=== PATIENT | male | born 1975 | race African-American/Black ===

== ENCOUNTER 2019-01-10 20:22 | Emergency (ER) | payer OTHER ==
[~2019-01-10] VITALS: Ht 177.8 cm; Wt 72.6 kg
[2019-01-10 20:28] VITALS: BP 142/104
--- NOTE | 2019-01-10 20:29 | NUR ---
ED Nurse Note: patient presents with history of seizure, witnessed seizure today by family member, estimated duration over a minute. Patient was seen having rotating hand movements and unresponsive until post ictal.
--- NOTE | 2019-01-10 20:43 | Emergency Room Report ---
History of Present Illness General Chief Complaint: Seizure Source: Patient, Significant Other, EMS Present Illness HPI EMS was summoned for seizure. Patient was postictal and unable to give history to them. When I speak with him he says that he has had seizures in the past but is not taking medication at this time. He does drink alcohol frequently. He claims to have had a work-up done in the past with a CT that he says was negative. He cannot tell me when his last seizure was. He denies biting his tongue or any pain in his body at this time. According to the patient's significant other he is been drinking daily since he was a teenager. He was admitted to [facility] 2 years ago but refused to follow-up in rehab. He did not drink for the last 24 hours. He has an ulcer on his left second toe that is been there for quite a while. His is not sure when his last tetanus shot was. Although history is limited and there is been no fever, head injury, vomiting or diarrhea or melena. Allergies: Coded Allergies: No Known Allergies (Unverified , 01/10/19) Patient History Limited by: medical condition Past Medical History: see triage record Social History: Reports: alcohol use; Denies: smoking Social History Narrative Living on the streets Reviewed Nursing Documentation: PMH: Agreed; PSxH: Agreed Nursing Documentation-PMH Past Medical History: No History, Except For History Of Psychiatric Problem: Yes - anxiety Review of Systems All Other Systems: limited Physical Exam Vital Signs Date Time Temp Pulse Resp B/P (MAP) Pulse Ox O2 Delivery O2 Flow Rate FiO2 01/10/19 20:21 99.0 109 18 142/104 (117) 98 Room Air Sp02 EP Interpretation: reviewed, normal General Appearance: no apparent distress, alert, Postictal Head: normocephalic, atraumatic Eyes: bilateral eye PERRL, bilateral eye EOMI, bilateral eye Scleral Injection ENT: moist mucus membranes - no lingual trauma Neck: full range of motion, supple, no bony tend Respiratory: chest non-tender, lungs clear, normal breath sounds Cardiovascular #1: regular rate, rhythm, no edema Cardiovascular #2: 2+ radial (R) Gastrointestinal: non tender, soft, non-distended, decreased bowel sounds Genitourinary: no CVA tenderness Musculoskeletal: back normal, normal range of motion, non-tender, no calf tenderness Neurologic: alert, beater engineer helper III-XII nml as tested, motor strength/tone normal, DTRs symmetric, sensory intact, speech normal, other - tremulous, oriented - X1 Psychiatric: depressed affect Skin: warm/dry, other - ulcer L 2nd toe Medical Decision Making Diagnostic Impression: Primary Impression: Seizure Additional Impressions: Alcohol withdrawal Qualified Codes: F10.239 - Alcohol dependence with withdrawal, unspecified Toe ulcer Qualified Codes: L97.511 - Non-pressure chronic ulcer of other part of right foot limited to breakdown of skin Elevated CPK ER Course The patient presents post seizure with a history of seizures. Differential includes withdrawal seizure, epilepsy, brain bleed, electrolyte abnormality amongst others. The patient will be evaluated with EKG, chest x-rays, CT of the head and labs. The patient is placed on a school lunch monitor. IV hydration will be performed as well as he will be given a dose of Ativan and Keppra IV. Tetanus is given as well as bacitracin applied to the ulcer on the second toe. EKG without injury. Chest x-ray no infiltrates but possible nodule right upper lobe. CT without bleed or significant disease. Labs significant for negative alcohol and tox screen. White count normal. Elevated CPK. Patient again tremulous and Ativan repeated. No further seizure activity is observed. Due to the high probability of alcohol withdrawal the patient needs to be observed on the telemetry unit. The patient was presented to accepts the patient in transfer at [facility]. Laboratory Tests Test 01/10/19 20:45 01/10/19 21:48 White Blood Count 5.0 K/UL (4.8-10.8) Red Blood Count 4.34 M/UL (4.70-6.10) L Hemoglobin 14.2 G/DL (14.2-18.0) Hematocrit 42.6 % (42.0-52.0) Mean Corpuscular Volume 98 FL (80-99) Mean Corpuscular Hemoglobin 32.7 PG (27.0-31.0) H Mean Corpuscular Hemoglobin Concent 33.3 G/DL (32.0-36.0) Red Cell Distribution Width 13.7 % (11.6-14.8) Platelet Count 63 K/UL (150-450) L Mean Platelet Volume 7.5 FL (6.5-10.1) Neutrophils (%) (Auto) % (45.0-75.0) Lymphocytes (%) (Auto) % (20.0-45.0) Monocytes (%) (Auto) % (1.0-10.0) Eosinophils (%) (Auto) % (0.0-3.0) Basophils (%) (Auto) % (0.0-2.0) Differential Total Cells Counted 100 Neutrophils % (Manual) 56 % (45-75) Lymphocytes % (Manual) 35 % (20-45) Monocytes % (Manual) 9 % (1-10) Eosinophils % (Manual) 0 % (0-3) Basophils % (Manual) 0 % (0-2) Band Neutrophils 0 % (0-8) Platelet Estimate Decreased L Platelet Morphology Normal Red Blood Cell Morphology Normal Sodium Level 139 MMOL/L (136-145) Potassium Level 3.4 MMOL/L (3.5-5.1) L Chloride Level 98 MMOL/L (98-107) Carbon Dioxide Level 24 MMOL/L (21-32) Blood Urea Nitrogen 10 mg/dL (7-18) Creatinine 1.2 MG/DL (0.55-1.30) Estimate Glomerular Filtration Rate > 60 mL/min (>60) Glucose Level 137 MG/DL (74-106) H Calcium Level 9.6 MG/DL (8.5-10.1) Total Bilirubin 0.6 MG/DL (0.2-1.0) Aspartate Amino Transferase (AST) 90 U/L (15-37) H Alanine Aminotransferase (ALT) 43 U/L (12-78) Alkaline Phosphatase 127 U/L (46-116) H Total Creatine Kinase 1165 U/L (26-140) H Total Protein 9.1 G/DL (6.4-8.2) H Albumin 4.2 G/DL (3.4-5.0) Globulin 4.9 g/dL Albumin/Globulin Ratio 0.9 (1.0-2.7) L Serum Alcohol < 3 mg/dL Urine Color Yellow Urine Appearance Clear Urine pH 5 (4.5-8.0) Urine Specific [place] 1.025 (1.005-1.035) Urine Protein 3+ (NEGATIVE) H Urine Glucose (UA) Negative (NEGATIVE) Urine Ketones 3+ (NEGATIVE) H Urine Blood 4+ (NEGATIVE) H Urine Nitrite Negative (NEGATIVE) Urine Bilirubin Negative (NEGATIVE) Urine Urobilinogen 4 MG/DL (0.0-1.0) H Urine Leukocyte Esterase Negative (NEGATIVE) Urine RBC 5-10 /HPF (0 - 0) H Urine WBC 2-4 /HPF (0 - 0) Urine Squamous Epithelial Cells None /LPF (NONE/OCC) Urine Bacteria Few /HPF (NONE) Urine Mucus Few /LPF (NONE/OCC) H Urine Opiates Screen Negative (NEGATIVE) Urine Barbiturates Screen Negative (NEGATIVE) Phencyclidine (PCP) Screen Negative (NEGATIVE) Urine Amphetamines Screen Negative (NEGATIVE) Urine Benzodiazepines Screen Negative (NEGATIVE) Urine Cocaine Screen Negative (NEGATIVE) Urine Marijuana (THC) Screen Negative (NEGATIVE) EKG Diagnostic Results Rate: normal Rhythm: NSR ST Segments: no acute changes Rhythm Strip Diag. Results EP Interpretation: yes Rhythm: NSR, no PVC's, no ectopy Chest X-Ray Diagnostic Results Chest X-Ray Diagnostic Results : Chest X-Ray Ordered: Yes # of Views/Limited/Complete: 1 View Indication: Other EP Interpretation: Yes Interpretation: no consolidation, no effusion, no pneumothorax, other - possible nodule RUL Impression: Other Electronically Signed by: Electronically signed by Sherwin Sandoval MD CT/MRI/US Diagnostic Results CT/MRI/US Diagnostic Results : Imaging Test Ordered: head Impression no disease Last Vital Signs Date Time Temp Pulse Resp B/P (MAP) Pulse Ox O2 Delivery O2 Flow Rate FiO2 01/11/19 00:15 99.0 73 13 130/81 96 Room Air Status: improved [facility] Condition: Serious Sherwin Sandoval MD Jan 10, 2019 20:43
[2019-01-10] MEDS ORDERED: LORazepam Inj 2mg/ml 1ml IV ONE ×2 (20:45→22:15)
[2019-01-10] MEDS ORDERED: levETIRAcetam 500 MG in D5W 110 ML IV ONE (20:45)
--- NOTE | 2019-01-10 20:45 | NUR ---
ED Nurse Note: Blood drawn and sent to lab. Awaiting urine sample.
--- NOTE | 2019-01-10 21:00 | NUR ---
ED Nurse Note: Patient going down to radiology.
--- NOTE | 2019-01-10 21:07 | NUR ---
ED Nurse Note: Patient back from radiology.
[2019-01-10 21:08] LABS: CHLORIDE 98 MMOL/L (98-107); POTASSIUM 3.4 MMOL/L (3.5-5.1); SODIUM 139 MMOL/L (136-145)
[2019-01-10 21:10] LABS: HEMATOCRIT 42.6 % (42.0-52.0); HEMOGLOBIN 14.2 G/DL (14.2-18.0); MEAN CORPUSCULAR VOLUME 98 FL (80-99); PLATELET COUNT 63 K/UL (150-450); RED BLOOD COUNT 4.34 M/UL (4.70-6.10); RED CELL DISTRIBUTION WIDTH 13.7 % (11.6-14.8)
--- NOTE | 2019-01-10 21:14 | NUR ---
ED Nurse Note: Blood glusoce checked, 136. ERMD informed.
[2019-01-10 21:20] LABS: BLOOD UREA NITROGEN 10 mg/dL (7-18); CALCIUM 9.6 MG/DL (8.5-10.1); CARBON DIOXIDE 24 MMOL/L (21-32); CREATININE 1.2 MG/DL (0.55-1.30)
--- NOTE | 2019-01-10 21:40 | NUR ---
ED Nurse Note: Patient is post- ictal, sleeping post medication administration. vital signs stable and updated.
[2019-01-10 21:41] VITALS: BP 130/81
[2019-01-10 21:41] LABS: ALANINE AMINOTRANSFERASE 43 U/L (12-78); ALBUMIN 4.2 G/DL (3.4-5.0); ALBUMIN/GLOBULIN RATIO 0.9 (1.0-2.7); ALKALINE PHOSPHATASE 127 U/L (46-116); ASPARTATE AMINO TRANSFERASE 90 U/L (15-37); BILIRUBIN,TOTAL 0.6 MG/DL (0.2-1.0); CREATINE KINASE 1165 U/L (26-140)
--- NOTE | 2019-01-10 21:54 | NUR ---
ED Nurse Note: Urine specimen collected and taken down to lab.
[2019-01-10 21:59] LABS: APPEARANCE,URINE CLEAR; BILIRUBIN, URINE NEGATIVE (NEGATIVE); GLUCOSE, URINE (UA) NEGATIVE (NEGATIVE); KETONES,URINE 3+ (NEGATIVE); LEUKOCYTE ESTERASE ,URINE NEGATIVE (NEGATIVE); NITRITE,URINE NEGATIVE (NEGATIVE); PH,URINE 5 (4.5-8.0); PROTEIN,URINE 3+ (NEGATIVE); UROBILINOGEN,URINE 4 MG/DL (0.0-1.0)
[2019-01-10 22:03] LABS: COLOR,URINE YELLOW
--- NOTE | 2019-01-10 23:00 | NUR ---
ED Nurse Note: Patient resting comfortably. Vital signs stable.
[2019-01-10] MEDS ORDERED: Tetanus/Diptheria/Pertussis IM ONE (23:15)
[2019-01-10] MEDS ORDERED: Bacitracin Oint UD TOPIC ONE (23:15)
--- NOTE | 2019-01-10 23:58 | NUR ---
ED Nurse Note: Report called in to Carine RN toy assembly supervisor, Royalty here for picker box operator at this time.
[2019-01-11 00:15] VITALS: BP 130/81
--- NOTE | 2019-01-11 00:15 | NUR ---
ED Nurse Note: Patient discharged for transport to [facility]. Report given to S transport. Patient vital signs stable.
--- NOTE | 2019-01-11 09:44 | Diagnostic Imaging Report ---
Indication: Seizure Technique: Contiguous 5 mm thick transaxial imaging of the head obtained in a Siemens Sensation [address] scanner. Soft tissue and bone windows generated. Automatic Exposure Control was utilized. Total Dose length Product (DLP): 1421.[address] Dose Index Volume (CTDIvol): 70.38 mGy Comparison: none Findings: There is mild prominence of the ventricles, basal cisterns, and cerebral sulci consistent with atrophy. Mild, nonspecific, white matter hypoattenuation is noted throughout the brain consistent with chronic small vessel disease. There is no midline shift, edema, acute hemorrhage, mass effect, or abnormal extra-axial fluid collections. Bones are unremarkable. Impression: No acute intracranial bleed, mass effect or edema. Mild atrophy of the brain. Nonspecific white matter hypoattenuation probably due to chronic small vessel disease. The CT scanner at [facility] is accredited by the [employer] and the scans are performed using dose optimization techniques as appropriate to a performed exam including Automatic Exposure control.
--- NOTE | 2019-01-11 11:04 | Diagnostic Imaging Report ---
Indication: Dyspnea Comparison: None A single view chest radiograph was obtained. Findings: Cardiomediastinal appearance is within normal limits for age. The lungs are clear. Pulmonary vascularity is appropriate. The diaphragmatic contour is smooth and costophrenic angles are sharp. No pleural effusions are identified. The bones are unremarkable. Impression: No acute findings
== END 2019-01-11 00:15 | disposition short-term general hospital (02) ==
LOC: EDBD 20:22 → EMR 20:31
DX: G40.909 Epilepsy, unspecified, not intractable, without status epilepticus (principal); F10.239 Alcohol dependence with withdrawal, unspecified; L97.511 Non-pressure chronic ulcer of other part of right foot limited to breakdown of skin; F41.9 Anxiety disorder, unspecified; Z23 Encounter for immunization
CPT/HCPCS: 36415; 70450; 71045; 80053; 80307; 80329; 81003; 82550; 82962; 85007; 85025; 90471; 90715; 93005; 96361; 96374; 96375; 96376; 99284; J1953